=== PATIENT | female | born 1930 | race Caucasian/White ===

== ENCOUNTER → 2018-01-01 | Outpatient (REF) | payer MEDICARE ==
[2018-01-01 12:41] LABS: HEMATOCRIT 36.7 % (37.0-47.0); HEMOGLOBIN 11.8 g/dl (12.0-16.0); IMMATURE GRANULOCYTES 0.4 % (0.0-5.0); MEAN CELL VOLUME 99.5 fL CALC (80.0-100.0); MEAN CORPUSCULAR HGB CONC 32.2 g/L CALC (32.0-36.0); NEUT# 4.97 thou/uL (2.00-7.15); RED BLOOD COUNT 3.69 mill/uL (4.20-5.60); RED CELL DISTRI WIDTH 12.5 % (11.5-15.5)
[2018-01-01 13:10] LABS: ALBUMIN 4.3 g/dL (3.2-5.0); BILIRUBIN, TOTAL 0.4 mg/dL (0.0-1.4); CHOLESTEROL HDL RATIO 3.1 (<4.4 (CALC)); MAGNESIUM 2.1 mg/dL (1.6-2.3); POTASSIUM 5.5 mmol/l (3.5-5.1); TOTAL PROTEIN 7.6 g/dL (6.3-8.2)
[2018-01-01 13:39] LABS: TSH, 3RD GENERATION 3.62 uIU/mL (0.47 - 4.68)
== END | disposition home or self-care (01) ==
LOC: LAB 12:16
PROVIDERS: ATTEND Internal Medicine
DX: R60.0 Localized edema (principal); E11.42 Type 2 diabetes mellitus with diabetic polyneuropathy; N18.3 Chronic kidney disease, stage 3 (moderate)

== ENCOUNTER 2018-05-06 18:27 | Observation (INO) | payer MEDICARE ==
[~2018-05-06] VITALS: Ht 165.1 cm; Wt 57.0 kg
[2018-05-06 20:15] LABS: IMMATURE GRANULOCYTES 0.5 % (0.0-5.0); MEAN CELL VOLUME 99.7 fL CALC (80.0-100.0); MEAN CORPUSCULAR HGB 32.2 pG CALC (26.0-32.0); MEAN CORPUSCULAR HGB CONC 32.3 g/L CALC (32.0-36.0); NEUT# 11.12 thou/uL (2.00-7.15); RED BLOOD COUNT 3.2 mill/uL (4.20-5.60); RED CELL DISTRI WIDTH 13.5 % (11.5-15.5)
[2018-05-06 20:16] LABS: HEMATOCRIT 31.9 % (37.0-47.0); HEMOGLOBIN 10.3 g/dl (12.0-16.0)
[2018-05-06 20:16] LABS: URINE BILIRUBIN - DIPSTICK NEGATIVE (NEGATIVE); URINE BLOOD DIPSTICK TRACE-INTACT (NEGATIVE); URINE COLOR YELLOW; URINE GLUCOSE - DIPSTICK NEGATIVE (NEGATIVE); URINE KETONE TRACE mg/dL (NEGATIVE); URINE LEUK ESTERASE MODERATE (NEGATIVE); URINE NITRITE - DIPSTICK NEGATIVE (Negative); URINE PH 5.5 (4.5-8.0); URINE PROTEIN - DIPSTICK 30 mg/dL (NEG-TRACE); URINE UROBILINOGEN - DIPSTICK 0.2 E.U./dL (0.2)
[2018-05-06 20:26] LABS: URINE RBC 0-2 RBC/hpf (0-5); URINE SQUAMOUS EPITHELIAL CELL FEW EPI/hpf (0-FEW); URINE WBC TNTC WBC/hpf (0-5); URINE YEAST MANY hpf
[2018-05-06 20:27] LABS: URINE BACTERIA MODERATE hpf
[2018-05-06 20:28] LABS: ALBUMIN 3.9 g/dL (3.2-5.0); BILIRUBIN, TOTAL 0.6 mg/dL (0.0-1.4); CREATININE 2.7 mg/dL (0.5-1.0); TOTAL PROTEIN 6.7 g/dL (6.3-8.2)
[2018-05-06 22:40] VITALS: BP 137/54
[2018-05-07 04:00] VITALS: BP 139/54
[2018-05-07 09:16] VITALS: BP 131/66
[2018-05-07 11:15] LABS: HEMATOCRIT 32.4 % (37.0-47.0); HEMOGLOBIN 10.2 g/dl (12.0-16.0); IMMATURE GRANULOCYTES 0.6 % (0.0-5.0); MEAN CELL VOLUME 102.2 fL CALC (80.0-100.0); MEAN CORPUSCULAR HGB 32.2 pG CALC (26.0-32.0); MEAN CORPUSCULAR HGB CONC 31.5 g/L CALC (32.0-36.0); NEUT# 7.94 thou/uL (2.00-7.15); RED BLOOD COUNT 3.17 mill/uL (4.20-5.60); RED CELL DISTRI WIDTH 13.7 % (11.5-15.5)
[2018-05-07 11:33] LABS: CREATININE 1.9 mg/dL (0.5-1.0)
[2018-05-07 11:53] LABS: POTASSIUM 3.7 mmol/l (3.5-5.1)
[2018-05-07 12:00] VITALS: BP 138/76; BP 158/60
[2018-05-07] MEDS ORDERED: PRAVASTATIN40 MG PO (14:32)
[2018-05-07] MEDS ORDERED: ACTOS15 MG PO (14:34)
[2018-05-07] MEDS ORDERED: AMLODIPINE BESYL5 MG PO (14:36)
[2018-05-07] MEDS ORDERED: NEURONTIN100 MG PO (14:40)
[2018-05-07] MEDS ORDERED: ASPIRINCHW 81MG PO (14:42)
[2018-05-07 17:00] VITALS: BP 162/69; BP 163/90
[2018-05-07 19:05] VITALS: BP 158/71
[2018-05-07 23:30] VITALS: BP 153/68
[2018-05-08 03:15] VITALS: BP 145/71
[2018-05-08 05:48] LABS: HEMATOCRIT 31.3 % (37.0-47.0); HEMOGLOBIN 10.1 g/dl (12.0-16.0); IMMATURE GRANULOCYTES 0.4 % (0.0-5.0); MEAN CELL VOLUME 99.4 fL CALC (80.0-100.0); MEAN CORPUSCULAR HGB 32.1 pG CALC (26.0-32.0); MEAN CORPUSCULAR HGB CONC 32.3 g/L CALC (32.0-36.0); NEUT# 4.82 thou/uL (2.00-7.15); RED BLOOD COUNT 3.15 mill/uL (4.20-5.60); RED CELL DISTRI WIDTH 13.4 % (11.5-15.5)
[2018-05-08 06:12] LABS: ALBUMIN 3.2 g/dL (3.2-5.0); ALKALINE PHOSPHATASE 74 u/l (38-126); AMYLASE < 30 u/l (30-110); ANION GAP 10 (6-22 (CALC)); BILIRUBIN, TOTAL 0.3 mg/dL (0.0-1.4); BUN 18 mg/dL (8-23); BUN/CREATININE RATIO 11 (12-20 (CALC)); CARBON DIOXIDE 26 mmol/l (22-30); CHLORIDE 109 mmol/l (95-108); CREATININE 1.7 mg/dL (0.5-1.0); GFR 28 ML/MIN (>=60 (CALC)); GFR FOR AFR.AMER. 34 ML/MIN (>=60 (CALC)); LIPASE 34 u/l (23-300); MAGNESIUM 1.7 mg/dL (1.6-2.3); POTASSIUM 3.5 mmol/l (3.5-5.1); SGOT/AST 30 u/l (9-36); SODIUM 141 mmol/l (137-146); TOTAL PROTEIN 5.9 g/dL (6.3-8.2)
[2018-05-08 07:41] VITALS: BP 162/84
[2018-05-08 08:59] VITALS: BP 158/80
[2018-05-08 10:55] VITALS: BP 158/80
[2018-05-08] MEDS ORDERED: CARVEDILOL25 MG PO (13:15)
[2018-05-08] MEDS ORDERED: KEFLEX500 MG PO (13:16)
== END 2018-05-08 13:44 | disposition home or self-care (01) ==
LOC: ED 18:27 → ED-I 21:00 → ED 21:42 → MS2 21:43
PROVIDERS: Emergency Medicine; ADMIT Internal Medicine Nephrology; ATTEND Internal Medicine Nephrology
DX: N39.0 Urinary tract infection, site not specified (principal); G93.41 Metabolic encephalopathy; N17.9 Acute kidney failure, unspecified; I12.9 Hypertensive chronic kidney disease with stage 1 through stage 4 chronic kidney disease, or unspecified chronic kidney disease; E11.22 Type 2 diabetes mellitus with diabetic chronic kidney disease; N18.4 Chronic kidney disease, stage 4 (severe); E78.5 Hyperlipidemia, unspecified; B96.20 Unspecified Escherichia coli [E. coli] as the cause of diseases classified elsewhere; R41.0 Disorientation, unspecified; R25.8 Other abnormal involuntary movements

== ENCOUNTER → 2018-06-08 | Outpatient (REF) | payer MEDICARE ==
[~2018-06-08] MED LIST: ACTOS15 MG PO; AMLODIPINE BESYL5 MG PO; ASPIRINCHW 81MG PO; CARVEDILOL25 MG PO; KEFLEX500 MG PO; NEURONTIN100 MG PO; PRAVASTATIN40 MG PO
[2018-06-08 15:25] LABS: HEMATOCRIT 34.9 % (37.0-47.0); HEMOGLOBIN 11.1 g/dl (12.0-16.0); IMMATURE GRANULOCYTES 0.3 % (0.0-5.0); MEAN CELL VOLUME 99.1 fL CALC (80.0-100.0); MEAN CORPUSCULAR HGB 31.5 pG CALC (26.0-32.0); MEAN CORPUSCULAR HGB CONC 31.8 g/L CALC (32.0-36.0); NEUT# 4.84 thou/uL (2.00-7.15); RED BLOOD COUNT 3.52 mill/uL (4.20-5.60); RED CELL DISTRI WIDTH 12.8 % (11.5-15.5)
[2018-06-08 15:31] LABS: URINE BILIRUBIN - DIPSTICK NEGATIVE (NEGATIVE); URINE BLOOD DIPSTICK NEGATIVE (NEGATIVE); URINE COLOR YELLOW; URINE GLUCOSE - DIPSTICK NEGATIVE (NEGATIVE); URINE KETONE TRACE mg/dL (NEGATIVE); URINE LEUK ESTERASE MODERATE (Negative); URINE NITRITE - DIPSTICK NEGATIVE (Negative); URINE PH 5.5 (4.5-8.0); URINE PROTEIN - DIPSTICK NEGATIVE (NEG-TRACE); URINE SPECIFIC GRAVITY 1.025; URINE UROBILINOGEN - DIPSTICK 0.2 E.U./dL (0.2)
[2018-06-08 15:34] LABS: URINE CLARITY SL CLOUDY
[2018-06-08 15:58] LABS: URINE SQUAMOUS EPITHELIAL CELL MANY EPI/hpf (0-FEW)
[2018-06-08 16:15] LABS: CREATININE 2.4 mg/dL (0.5-1.0)
[2018-06-08 16:19] LABS: ALBUMIN 4.2 g/dL (3.2-5.0); POTASSIUM 4.6 mmol/l (3.5-5.1)
== END | disposition home or self-care (01) ==
LOC: LAB 14:50
PROVIDERS: ATTEND Internal Medicine Nephrology
DX: E11.22 Type 2 diabetes mellitus with diabetic chronic kidney disease (principal); N25.81 Secondary hyperparathyroidism of renal origin

== ENCOUNTER 2018-11-14 09:16 | Emergency (ER) | payer MEDICARE ==
[~2018-11-14] VITALS: Ht 165.1 cm; Wt 56.2 kg
[2018-11-14] MEDS ORDERED: MOTRIN400 MG PO (10:47)
[2018-11-14] MEDS ORDERED: VOLTAREN1%GEL TOP (10:47)
[2018-11-14 11:10] VITALS: BP 128/68
== END 2018-11-14 11:10 | disposition home or self-care (01) ==
LOC: ED 09:16
DX: S86.911A Strain of unspecified muscle(s) and tendon(s) at lower leg level, right leg, initial encounter (principal); I10 Essential (primary) hypertension; E11.9 Type 2 diabetes mellitus without complications; X58.XXXA Exposure to other specified factors, initial encounter